=== PATIENT | female | born 1990 | race Caucasian/White ===

== ENCOUNTER 2016-10-24 17:40 | Observation (INO) | payer BC, OTHER ==
[~2016-10-24] VITALS: Ht 154.9 cm; Wt 59.4 kg
[2016-10-24] MEDS ORDERED: PREVTAB2 PO (17:53)
[2016-10-24 18:23] LABS: BASO % 0.2 % (0.0-1.0); EOS % 0.1 % (0.0-3.0); LARGE UNSTAINED CELL # 0.1 K/mm3 (0.0-0.4); LARGE UNSTAINED CELL % 0.6 % (0.0-4.0); LYMPH # 1.5 K/mm3 (1.5-6.5); LYMPH % 13.9 % (24.0-44.0); MEAN CORPUSCULAR HEMOGLOBIN 28.2 pg (27.0-33.0); MEAN CORPUSCULAR HGB CONC 34.4 g/dl (32.0-36.5); MEAN CORPUSCULAR VOLUME 81.8 fl (80.0-96.0); MONO # 0.4 K/mm3 (0.0-0.8); MONO % 3.7 % (0.0-5.0); NEUTROPHILS # 8.3 K/mm3 (1.8-7.7); NEUTROPHILS % 81.6 % (36.0-66.0); PLATELET COUNT, AUTOMATED 206 k/mm3 (150-450); RED CELL DISTRIBUTION WIDTH 12.7 % (11.5-14.5); WHITE BLOOD COUNT 10.2 K/mm3 (4.0-10.0)
[2016-10-24 18:43] LABS: CONTROL LINE HCG INT CTR LINE PRESENT
[2016-10-24 18:54] LABS: ANION GAP 10 MEQ/L (8-16); BLOOD UREA NITROGEN 13 MG/DL (7-18); CALCIUM LEVEL 9.2 MG/DL (8.5-10.1); CARBON DIOXIDE LEVEL 24 MEQ/L (21-32); CHLORIDE LEVEL 106 MEQ/L (98-107); CREATININE FOR GFR 0.78 MG/DL (0.55-1.02); FREE T4 1.21 NG/DL (0.76-1.46); GLOMERULAR FILTRATION RATE > 60.0 (>60); GLUCOSE, FASTING 124 MG/DL (70-105); MAGNESIUM LEVEL 2.1 MG/DL (1.8-2.4); PHOSPHORUS LEVEL 1.8 MG/DL (2.5-4.9); POTASSIUM SERUM 3.7 MEQ/L (3.5-5.1); SODIUM LEVEL 140 MEQ/L (136-145)
[2016-10-24] MEDS ORDERED: ISOVUE-370 76% 100ML VIAL (Q9967) As Ordered ONE (19:12)
[2016-10-24 19:34] LABS: METHADONE URINE NEGATIVE (NEGATIVE)
--- NOTE | 2016-10-24 19:51 | REP ---
Clinical: Acute chest pain . Technique: Axial contrast enhanced images from the thoracic inlet to the upper abdomen using 100 ml Isovue 370 intravenous contrast material with multiplanar re-formations. Findings: Satisfactory enhancement of the pulmonary vasculature is achieved and no filling defects are identified to suggest pulmonary embolus. Further evaluation of the mediastinum demonstrates normal thoracic aorta, heart and pericardium. The bilateral lung camara are well aerated and clear without consolidation, pleural effusion or pneumothorax. Tracheobronchial tree is patent. No nodule or mass lesion is identified. No adenopathy noted. Surrounding musculoskeletal structures intact Impression: No evidence for pulmonary embolus. No acute mediastinal or pleural parenchymal process. Signed by Randolph Holden MD 10/24/2016 07:43 P
[2016-10-24] MEDS ORDERED: BISACODYL 5 MG TAB PO PRN (20:00)
[2016-10-24] MEDS ORDERED: ONDANSETRON 4MG/2ML VIAL (J2405) IV PRN (20:00)
[2016-10-24] MEDS ORDERED: NEUTRA-PHOS 1.25 GM PACKET PO ONE (20:00)
[2016-10-24] MEDS ORDERED: FERR325T PO (20:08)
[2016-10-24] MEDS ORDERED: VITA-121 PO (20:08)
[2016-10-24] MEDS ORDERED: NS 1,000 ML IV ONE (21:00)
[2016-10-24] MEDS ORDERED: K-PHOS NEUTRAL 250MG TABLET (SOD.PHOSPHATE/POT.PHOSPHATE) PO SCH (21:00)
[2016-10-24] MEDS ORDERED: HEPARIN SOD (PORCINE) 5000 UNITS/ML VIAL SC SCH (22:00)
--- NOTE | 2016-10-24 22:53 | HPE ---
DATE OF ADMISSION: 10/24/2016 PRIMARY CARE PHYSICIAN: Dr. Laurence Jenkins INPATIENT HOSPITALIST ATTENDING: Patient will be assigned to Dr. Stepan Page at 7:00 a.m. on 10/25/2016. CHIEF COMPLAINT: Palpitations, lightheadedness, dizziness. HISTORY OF THE PRESENT ILLNESS: This is a 26-year-old female with a history of vitamin D deficiency, iron deficiency anemia, presents to the emergency room with a 1-2 month history of on and off palpitations noted when she took some cold medications for respiratory symptoms, had a reaction and complained of palpitations. At that time, she had seen her primary care physician who had recommended no caffeinated beverages and to avoid chocolate and caffeine. In general, the patient has been having on and off dizziness and lightheadedness even with rest. Complained of occasional chest pressure, notes sometimes some shortness of breath when this occurs. She otherwise denies any fevers or chills. Has occasional headaches and blurred vision, which is 2-3 per week that she has had for several years. No chills, no cough. No abdominal pain. She has occasional abdominal cramping, especially today when she started her period. Otherwise denies dysuria, urgency, frequency, bright red blood per rectum, melena or black , tarry stools. Prior to 2 months ago, she has had no prior episodes of palpitations, lightheadedness or dizziness. She has had unintentional weight loss of about 13 pounds since this started with decreased appetite, more markedly with decrease in appetite in the past 2 weeks. She usually weighs 143 pounds, currently 130 pounds when assessed in the emergency room today. TSH level was within normal limits. She saw Dr. Laurence Jenkins today, prompted her to come to the emergency room (ER) due to persistent complaints and palpitations and dizziness. No syncopal episodes. She was found to have sinus tachycardia, ventricular rate of 115 with junctional rhythm noted on persistent telemetry. CT chest was negative for pulmonary embolism; otherwise unremarkable with no acute mediastinal or pleural parenchymal process. Hospitalist service was called for admission for observation for palpitations and dizziness, junctional rhythm. PAST MEDICAL HISTORY: Vitamin D deficiency. Iron deficiency anemia. PAST SURGICAL HISTORY: Appendectomy at the age of 8 or 9. HOME MEDICATIONS: - Previfem 0.25-35 mg-mcg one tablet daily - vitamin D3 one tablet daily - ferrous sulfate one tablet daily ALLERGIES: LATEX causing hives. SOCIAL HISTORY: Single, currently not working and not a student. No alcohol or cigarette use. FAMILY HISTORY: Mother and father alive and well. No medical problems. Mother is age 47, father age 50. Maternal great-aunt had heart problems. REVIEW OF SYSTEMS: 12-point system negative aside from positive findings on history of the present illness. PHYSICAL EXAMINATION: Vital Signs: Temperature 99.1, pulse 116, sinus tachycardia, respiratory rate 20 , blood pressure 132/99, pulse oximetry 97% on room air. General: Awake, alert, oriented times three, no respiratory distress or cyanosis. No use of respiratory accessory muscles. No icterus or jaundice. Pupils are equally round and reactive to light and accommodation. Extraocular muscles are intact. Normocephalic, atraumatic. Moist mucous membranes. Tongue is midline. No cervical lymphadenopathy, thyromegaly or pharyngeal erythema. Lungs are clear to auscultation. No wheezing, rales, or rhonchi. Air entry is equal bilaterally. Heart: S1, S2, sinus tachycardia. No murmurs, rubs or gallops. Abdomen is soft, nontender, nondistended. Positive bowel sounds. Extremities: No cyanosis, clubbing or pitting edema. Neurologically, she is awake, alert, oriented times three. Motor function is 5/5 times four extremities. No sensory disturbance. Cranial nerves II-XII are intact. LABORATORY DATA: White count 10.2, hemoglobin 14.7, hematocrit 42.6, platelet count 206, 81% neutrophils. Sodium 140, potassium 3.7, chloride 106, bicarbonate 24, BUN 13, creatinine 0.78, glucose of 124, calcium 9.2, phosphorus 1.8, magnesium 2.1, total CK 43, MB fraction 1, troponin less than 0.02, TSH 1.05, free T4 1.21, HCG qualitative negative. Urine toxicology screen is negative. Urinalysis: 1+ protein, 2+ ketones, 3+ blood. Negative nitrite, bilirubin, negative leukocyte esterase, 7 WBCs, too numerous to count RBCs, 1+ bacteria. Urine culture is pending. IMAGING STUDIES: CT chest: No pulmonary embolism. No acute mediastinal or pleural parenchymal process. ASSESSMENT AND PLAN: A 26-year-old female with a history of vitamin D deficiency and iron deficiency anemia, on chronic supplementation and oral contraceptive pill, was in her usual state of health until 1-2 months ago when she developed palpitations, lightheadedness and dizziness after taking zumm-esp-degcnhr cold medications for upper respiratory symptoms. Since then, the patient has been having on and off palpitations, lightheadedness and dizziness, despite having discontinued all caffeinated beverages, including chocolate and coffee with persistent symptoms. The patient was noted to have sinus tachycardia and junctional rhythm on telemetry. CT chest was negative for pulmonary embolism. She is admitted for observation under hospitalist service and will be assigned to Dr. Stepan Page, hospitalist attending, at 7:00 a.m. on 10/25/2016 for the following issues: 1. Palpitations with complaints of dizziness. No episodes of syncope. The patient had an abnormal EKG with sinus tachyarrhythmia, episodes of junctional rhythm. Therefore, she will be admitted to telemetry with 24 hours cardiac monitoring. Continue to avoid caffeinated beverages. Thyroid-stimulating hormone (TSH) was normal and ruled out hyperthyroidism. Echocardiogram will be ordered. No murmurs on examination. Repeat 12-lead EKG in the morning, off telemetry for testing. 2. Unintentional weight loss. Patient has had decrease in appetite for the past 2 weeks and has an unintentional weight loss of 13 pounds. TSH is within normal limits. Outpatient followup with her primary care physician for monitoring. 3. Vitamin D deficiency. Continue with vitamin D supplements. Check PTH, calcium and vitamin D levels. 4. Iron deficiency. Currently not anemic. May continue home dose of ferrous sulfate. 5. Low phosphorus. Patient has been given Neutra-Phos. May continue 3-4 times daily and recheck phosphorus level in the morning. 6. Deep vein thrombosis (DVT) prophylaxis with heparin subcutaneously three times a day. 7. Abnormal EKG with junctional rhythm on telemetry. Continue with telemetry monitoring, cardiac monitoring for 24 hours, await 2D echo and repeat 12-lead EKG in the morning. The patient will be assigned to Dr. Stepan Page 10/25/2016 at 7:00 a.m. Copy To: Dr. Laurence VAN
[2016-10-25] VITALS (7 sets, daily range): BP systolic 119–136; BP diastolic 78–86; PULSE 156–205
[2016-10-25 03:41] LABS: IONIZED CALCIUM 4.7 MG/DL (4.5-5.3)
[2016-10-25 03:45] LABS: MEAN CORPUSCULAR HEMOGLOBIN 28.9 pg (27.0-33.0); MEAN CORPUSCULAR HGB CONC 34.2 g/dl (32.0-36.5); MEAN CORPUSCULAR VOLUME 84.4 fl (80.0-96.0); RED CELL DISTRIBUTION WIDTH 12.6 % (11.5-14.5); WHITE BLOOD COUNT 8.6 K/mm3 (4.0-10.0)
[2016-10-25 04:46] LABS: ANION GAP 9 MEQ/L (8-16); BLOOD UREA NITROGEN 13 MG/DL (7-18); CALCIUM LEVEL 8.8 MG/DL (8.5-10.1); CARBON DIOXIDE LEVEL 26 MEQ/L (21-32); CHLORIDE LEVEL 106 MEQ/L (98-107); CREATININE FOR GFR 0.67 MG/DL (0.55-1.02); GLOMERULAR FILTRATION RATE > 60.0 (>60); GLUCOSE, FASTING 92 MG/DL (70-105); MAGNESIUM LEVEL 2.1 MG/DL (1.8-2.4); PHOSPHORUS LEVEL 3.4 MG/DL (2.5-4.9); POTASSIUM SERUM 3.7 MEQ/L (3.5-5.1); SODIUM LEVEL 141 MEQ/L (136-145)
--- NOTE | 2016-10-25 08:14 | ECGEPIP ---
Stationary ECG Study [facility] Test Date: 2016-10-25 Pat Name: HUSSAIN ACOSTA Department: Room: [place] [address] Gender: F Sanitary Plumber: CINDY : 1990 Requested By: YOBANI PIEDRA Order Number: [id number] Reading MD: Radha Harding Measurements Intervals [place] Rate: 75 P: 42 [place]: 134 QRS: 66 QRSD: 85 T: 43 QT: 383 QTc: 429 Interpretive Statements SINUS RHYTHM WITH SINUS ARRHYTHMIA Now WITH SINUS RHYTHM PREVIOUSLY WITH ECTOPIC AATRIAL PROB EARLY REPOLAR CHANGES PERSIST Electronically Signed On 10-25-2016 8:14:05 EDT by Radha Harding
--- NOTE | 2016-10-25 08:16 | ECGEPIP ---
Stationary ECG Study [facility] Test Date: 2016-10-25 Pat Name: HUSSAIN ACOSTA Department: Room: [place] [address] Gender: F Resident Physician: CINDY : 1990 Requested By: YOBANI PIEDRA Order Number: [id number] Reading MD: Radha Harding Measurements Intervals [place] Rate: 78 P: 262 [place]: 123 QRS: 71 QRSD: 84 T: 42 QT: 371 QTc: 424 Interpretive Statements ECTOPIC ATRIAL RHYTHM EARLY REPOLARIZATION ABNORMAL RHYTHM ECG SIMILAR TO 10/24 10/25 EARLIER WITH nsr Electronically Signed On 10-25-2016 8:15:36 EDT by Radha Harding
--- NOTE | 2016-10-25 10:16 | ECGEPIP ---
Stationary ECG Study [facility] Test Date: 2016-10-24 Pat Name: HUSSAIN ACOSTA Department: Room: - Gender: F Guyline Operator: JBladimir : 1990 Requested By: PHIL Hutchinson Order Number: [id number] Reading MD: Leatha Bustos Measurements Intervals [place] Rate: 104 P: 48 [place]: 132 QRS: 68 QRSD: 80 T: 29 QT: 328 QTc: 433 Interpretive Statements SINUS TACHYCARDIA ABNORMAL RHYTHM ECG EARLY REPOLARIZATION INCREASED 10/25/16 3:13 Electronically Signed On 10-25-2016 10:16:17 EDT by Leatha Bustos
--- NOTE | 2016-10-25 11:01 | ECGEPIP ---
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
--- NOTE | 2016-10-25 11:29 | IPN ---
DATE OF EXAM: 10/25/2016 SUBJECTIVE: Today the patient tells me that she is feeling a little bit better, but she still feels some palpitations and lightheadedness, but does note no near significant as it was when she presented to the emergency room. OBJECTIVE: VITAL SIGNS: Temperature 98.7, pulse 88, when I enter the room it does increase to just above 100 which it does calm down and does reduce back down to the 80s, respiratory rate 20, blood pressure 119/79, oxygen saturation 94% on room air. GENERAL: She is a pleasant, young, female laying flat in bed, sleeping peacefully at the other end of the room. She is easily arousable. HEENT: Cranial nerves II-XII grossly intact. She has moist mucous membranes. No elevation of central venous pressure. CARDIOVASCULAR: S1, S2. She is mildly tachycardic on exam without any distant heart sounds appreciated. She appears to be quite regular. RESPIRATORY: Clear. ABDOMEN: Benign. EXTREMITIES: No clubbing, cyanosis or edema. LABORATORY STUDIES: WBC 8.6, hemoglobin 14.1, platelet count 201. Chemistry panel - sodium 141, potassium 3.7, chloride 106, bicarbonate 26, BUN 13, creatinine 0.3. Two sets of cardiac enzymes are negative. Phosphorus level was initially low at 1.8 yesterday evening, a recheck this morning was in the normal range at 3.4. TSH was within normal limits. HCG test is negative. A urine toxicology is negative. UA is positive for RBCs, but the patient has had her period yesterday. A Lyme screening is pending. A urine culture is pending. Patient did have a CT angiography of her chest which revealed no evidence of pulmonary embolism (PE) or acute mediastinal or pleuroparenchymal process. ASSESSMENT AND PLAN: This is a 26-year-old female presenting with palpitations and lightheadedness. PROBLEMS: 1. Palpitations and lightheadedness. No syncopal episodes. There was concern for a junctional rhythm on her presenting EKG, however, she appears to be in sinus tach. The patient reportedly had the symptoms after taking some njis-iir-jbglgqq cough medicine with multiple ingredients in it, she does not recall what it was. The patient has had episodes in the past, but not as persistent for the last several weeks as it has been now and given her age and the abnormalities on her EKG I placed a consult with Dr. Hanks who has told me he will see the patient today to evaluate for any further chest and an echocardiogram has been ordered. 2. Unintentional weight loss. Patient does not appear to be malnourished on exam. She has moist mucous membranes without any significant lab abnormalities. She is tolerating a diet here quite well. She has recently been ill and taking xteq-aig-azcxxvv cold medicine and recent illness may be a contributing factor to recent weight loss which she does appear to be recovering. TSH is within normal limits. Followup with her primary care provider. 3. Vitamin D deficiency. Continue with supplementation. PTH and vitamin D levels have been checked. 4. Iron deficiency anemia. She is not currently anemic. She will continue on her home dose of ferrous sulfate. 5. Low phosphorus. She did not resolve with repletion. We will not add any further repletion. 6. Deep venous thrombosis (DVT) prophylaxis. The patient is on heparin. DISPOSITION: The patient is awaiting an echocardiogram, consultation from Dr. Hanks. Symptoms may be related to anxiety. We will continue to monitor this patient closely.
[2016-10-25] MEDS: ACETAMINOPHEN TAB 650MG DOSE (2X325MG) PO PRN (17:09)
[2016-10-25] MEDS: MECLIZINE 25 MG TABLET PO SCH (21:15)
[2016-10-26] VITALS: BP 130/70
[2016-10-26 04:00] VITALS: BP 126/79
[2016-10-26 04:55] LABS: MEAN CORPUSCULAR HEMOGLOBIN 28.5 pg (27.0-33.0); MEAN CORPUSCULAR HGB CONC 34.8 g/dl (32.0-36.5); MEAN CORPUSCULAR VOLUME 82.1 fl (80.0-96.0); RED CELL DISTRIBUTION WIDTH 12.7 % (11.5-14.5); WHITE BLOOD COUNT 7.3 K/mm3 (4.0-10.0)
[2016-10-26 05:09] LABS: ANION GAP 7 MEQ/L (8-16); BLOOD UREA NITROGEN 9 MG/DL (7-18); CALCIUM LEVEL 8.8 MG/DL (8.5-10.1); CARBON DIOXIDE LEVEL 28 MEQ/L (21-32); CHLORIDE LEVEL 106 MEQ/L (98-107); CREATININE FOR GFR 0.66 MG/DL (0.55-1.02); GLOMERULAR FILTRATION RATE > 60.0 (>60); GLUCOSE, FASTING 89 MG/DL (70-105); POTASSIUM SERUM 3.5 MEQ/L (3.5-5.1); SODIUM LEVEL 141 MEQ/L (136-145)
[2016-10-26 06:55] LABS: PHOSPHORUS LEVEL 3.4 MG/DL (2.5-4.9)
[2016-10-26 08:00] VITALS: BP 117/79
--- NOTE | 2016-10-26 08:05 | ECGEPIP ---
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
[2016-10-26] MEDS: MECLIZINE 25 MG TABLET PO SCH ×2 (09:21→20:42)
[2016-10-26 12:00] VITALS: BP 118/74
--- NOTE | 2016-10-26 12:32 | IPN ---
DATE: 10/26/2016 SUBJECTIVE: The patient tells me that she is not feeling as lightheaded or having shortness of breath. However, she does feel uncomfortable at times when she gets up and walks. She denies any lightheadedness or dizziness at the present time. No fevers, chills. SUBJECTIVE: Vital signs: Temperature 97.3, pulse 78, respiratory rate 16, blood pressure 117/79, oxygen saturation 93% on room air. General: She is a young female lying flat in bed. She does not appear to be in any acute distress. Sleeping peacefully when I entered the room. HEENT: Cranial nerves II through XII are grossly intact. She has moist mucous membranes. No elevation of CVP. Cardiovascular exam: S1, S2. Regular. She is not tachycardic. Respiratory: Exam is clear. Abdomen: Benign. Extremities: No clubbing, cyanosis or edema. LABORATORY STUDIES: WBC 7.3, hemoglobin 13.1, platelet count 180. Chemistry panel: Sodium 141, potassium 3.5, chloride 106, bicarbonate 28, BUN 9, creatinine 0.6. She has a TSH within normal limits. Toxicology is negative. Urine culture is negative. No other imaging. ASSESSMENT AND PLAN: This is a 26-year-old female with palpitations and lightheadedness. PROBLEMS: 1. Palpitations and lightheadedness. No syncopal episodes. The patient does appear to have junctional rhythm on her EKGs. Dr. Hanks has been consulted. I am awaiting his recommendations. We ordered an echocardiogram which has been completed. We are awaiting the report. There does not appear to be a clear etiology for her symptoms at this time. She has been avoiding caffeine counting chocolate. Dr. Hanks's help is greatly appreciated. 2. Vitamin D deficiency. Patient on supplementation. 3. Iron deficiency anemia. She is not currently anemic. She is on her home dose of ferrous sulfate. 4. Low phosphorus at the time of admission. It did resolve with easy repletion. 5. Deep venous thrombosis (DVT) prophylaxis. Patient on heparin. DISPOSITION: Continue to follow this patient closely. [facility]
[2016-10-26 16:00] VITALS: BP 111/80
[2016-10-26 20:00] VITALS: BP 121/83
[2016-10-27] VITALS: BP 132/89
[2016-10-27 00:06] LABS: Lyme Disease IgG/IgM Antibodie <0.91 ISR (0.00-0.90); Lyme Disease IgM Ab Quantitati <0.80 index (0.00-0.79)
[2016-10-27 04:00] VITALS: BP 133/73
[2016-10-27 05:24] LABS: MEAN CORPUSCULAR HEMOGLOBIN 28.1 pg (27.0-33.0); MEAN CORPUSCULAR HGB CONC 33.4 g/dl (32.0-36.5); MEAN CORPUSCULAR VOLUME 84.1 fl (80.0-96.0); RED CELL DISTRIBUTION WIDTH 12.6 % (11.5-14.5)
[2016-10-27 05:43] LABS: ANION GAP 8 MEQ/L (8-16); BLOOD UREA NITROGEN 10 MG/DL (7-18); CALCIUM LEVEL 8.1 MG/DL (8.5-10.1); CARBON DIOXIDE LEVEL 26 MEQ/L (21-32); CHLORIDE LEVEL 106 MEQ/L (98-107); CREATININE FOR GFR 0.64 MG/DL (0.55-1.02); GLOMERULAR FILTRATION RATE > 60.0 (>60); GLUCOSE, FASTING 96 MG/DL (70-105); MAGNESIUM LEVEL 1.9 MG/DL (1.8-2.4); PHOSPHORUS LEVEL 3.4 MG/DL (2.5-4.9); POTASSIUM SERUM 3.4 MEQ/L (3.5-5.1); SODIUM LEVEL 140 MEQ/L (136-145)
[2016-10-27 08:00] VITALS: BP 127/76
[2016-10-27] MEDS: ACETAMINOPHEN TAB 650MG DOSE (2X325MG) PO PRN (08:01)
[2016-10-27] MEDS: MECLIZINE 25 MG TABLET PO SCH (08:02)
--- NOTE | 2016-10-27 20:18 | ECHO ---
DATE OF PROCEDURE: 10/25/2016 REFERRING PROVIDER: Dr. Stepan Page PATIENT LOCATION: Room 3201 REASON FOR ECHOCARDIOGRAM: Abnormal EKG. 2D MEASUREMENTS: IVS: 0.89 cm LVPW: 0.85 cm LV: 4.0 cm LA: 2.7 cm Aorta: 2.7 cm IVC: 1.72 cm DOPPLER MEASUREMENTS: Peak velocity across the LVOT: 0.77 m/s Mitral E: 0.54 Mitral A: 0.43 with a ratio of 1.3 2D COMMENTS: 1. Normal left ventricular size, wall thickness and normal global left ventricular systolic evidence of defect on Doppler. 2. No pericardial effusion seen. 3. Normal aortic root. 4. The aortic valve, mitral valve, the tricuspid valve appear to be normal. The pulmonic valve and proximal pulmonary artery branches were not visualized. 5. The inferior vena cava was normal in size. Central venous pressure is most likely normal. DOPPLER: No significant valvular abnormalities detected. Assessment of the left ventricular diastolic function appear to be normal. IMPRESSION: 1. Normal global left ventricular systolic and diastolic function. 2. No significant valvular abnormalities. 3. 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
--- NOTE | 2016-10-28 21:19 | DSES ---
DATE OF ADMISSION: 10/24/2016 DATE OF DISCHARGE: 10/27/2016 DISCHARGE DIAGNOSIS: Tachycardia. SECONDARY DIAGNOSES: 1. Dizziness, lightheadedness. 2. Palpitations. 3. Vitamin D deficiency. 4. Iron deficiency. 5. Hypophosphatemia. HOSPITAL COURSE: The patient is a 26-year-old female who reportedly had taken some cough medicine with multiple ingredients in it that she cannot recall, and then following this, she has had persistent episodes of palpitations and lightheadedness without any syncopal episodes. During the episodes, she finds her heart rate is elevated. She finds that anytime she does any activity such as getting a walk to the bathroom, she finds her heart rate to be quite elevated. She was admitted to the telemetry floor. Electrocardiograms (EKGs) were concerning for junctional rhythm although there is no documentation in the chart as of yet. She did have an echocardiogram and was seen by Dr. Hanks of cardiology on multiple occasions. She did have a fairly thorough workup with negative cardiac enzymes. CT angiogram did not reveal any pulmonary embolism (PE). At times while resting in the hospital, her heart rate was in the 60s and 70s. However, when a doctor would enter the room, her heart rate was noticed to jump to greater than 100. There is a concern that her tachycardia may be related in some way to anxiety as no abnormalities were able to be found. Her toxicology screen was negative. She is not using caffeine or tobacco products. Her lab screen was negative. During her stay, the patient was on her menstrual cycle. SUBJECTIVE: Today, the patient reports that she feels well. She does not have any lightheadedness at present. OBJECTIVE: VITAL SIGNS: Temperature is 97.4, pulse 94, respiratory rate 20, blood pressure 127/76, oxygen saturation 98% on room air. GENERAL: She is a young female lying flat in bed. She has a mildly flat affect. She does not appear to be in any acute distress whatsoever. HEENT: Cranial nerves II through XII are grossly intact. She has moist mucous membranes. No elevation of central venous pressure (CVP). CARDIOVASCULAR: S1, S2. Regular rate and rhythm at this time. She is not tachycardic on my exam. RESPIRATORY: Clear. ABDOMEN: Benign. EXTREMITIES: No clubbing, cyanosis or edema. LABORATORY DATA: WBC 7.0, hemoglobin 12.9, platelet count 196. Chemistry panel: Sodium 140, potassium 3.4, chloride 106, bicarbonate 26, BUN 10, creatinine 0.6, phosphorus level 3.4, magnesium 1.9. TSH within normal limits, and hCG was negative. UA revealed blood but the patient was on her menstrual cycle. Urine toxicology was negative. Lyme screen was negative. IMAGING: The patient had CT angiogram that did not reveal any PE. ASSESSMENT AND PLAN: This is a 26-year-old female with palpitations, lightheadedness. 1. Palpitations, lightheadedness. No episodes of syncope. The patient appears to have some concerning junctional rhythm on her EKG. Dr. Hanks has been consulted and has seen the patient on multiple occasions. I have spoken with him personally. He has assured me that there are no abnormalities on her echocardiogram, and there is nothing to be done in terms of medication or treatment at this time, and that he will follow her on the outpatient setting. I do have concern that her symptoms may be related to anxiety, and she will followup with Dr. Hanks and her primary care provider. 2. Vitamin D deficiency. She is on supplementation. 3. Iron-deficiency anemia. She is not anemic. She is continued on her home ferrous sulfate. 4. Low phosphate. At the time of admission, she did receive one dose of repletion. This resolved. 5. Deep venous thrombosis (DVT) prophylaxis. She was on heparin while in hospital. DISPOSITION: The patient is at her functional baseline. She is being discharged home to the care of her father. She is to followup with her primary care provider (PCP) in seven days. Followup with Dr. Hanks within two weeks. Activity is as tolerated. Diet is regular. She is to return to the ER if her symptoms worsen. DISCHARGE MEDICATIONS: - vitamin D3 daily - ferrous sulfate daily - Previfem 0.2/35 one tablet daily Greater than 30 minutes spent organizing this discharge.
== END 2016-10-27 10:08 | disposition home or self-care (01) ==
LOC: M ED 18:23 → M ED INP 19:55 → M ICU 23:21
PROVIDERS: ADMIT General Practice; ATTEND Internal Medicine
DX: R00.0 Tachycardia, unspecified (principal); R42 Dizziness and giddiness; R00.2 Palpitations; E55.9 Vitamin D deficiency, unspecified; D50.9 Iron deficiency anemia, unspecified; E83.39 Other disorders of phosphorus metabolism; Z91.040 Latex allergy status
CPT/HCPCS: 36415; 71275; 80048; 80306; 81001; 82306; 82330; 82550; 82553; 83735; 83970; 84100; 84439; 84443; 84703; 85025; 85027; 86617; 87086; 93005; 93041; 94760; 96374; 99285; J2405; Q9967

== ENCOUNTER → 2016-10-24 | Outpatient (CLI) | payer BC, OTHER ==
[~2016-10-24] MED LIST: FERR325T PO; PREVTAB2 PO; VITA-121 PO
--- NOTE | 2016-10-24 16:35 | REP ---
Chest x-ray: Two views. History: Cardiac history. . Comparison study: January 27, 2014 . Findings: The lungs are well inflated and free of infiltrate. The pleural angles are sharp. The heart size is normal. Pulmonary vasculature is not increased. No significant bony abnormality is seen. Impression: Negative chest x-ray. Signed by Bennie Padgett MD 10/24/2016 04:26 P
[2016-10-24 16:40] LABS: MEAN CORPUSCULAR HEMOGLOBIN 28.2 pg (27.0-33.0); MEAN CORPUSCULAR HGB CONC 34.2 g/dl (32.0-36.5); MEAN CORPUSCULAR VOLUME 82.6 fl (80.0-96.0); RED CELL DISTRIBUTION WIDTH 12.8 % (11.5-14.5); WHITE BLOOD COUNT 9.1 K/mm3 (4.0-10.0)
[2016-10-24 17:02] LABS: ALBUMIN 4.1 GM/DL (3.2-5.2); ALBUMIN/GLOBULIN RATIO 1.14 (1.00-1.93); ALKALINE PHOSPHATASE 66 U/L (45-117); ALT/SGPT 33 U/L (12-78); ANION GAP 11 MEQ/L (8-16); AST/SGOT 12 U/L (15-37); BILIRUBIN,TOTAL 0.4 MG/DL (0.2-1.0); BLOOD UREA NITROGEN 13 MG/DL (7-18); CALCIUM LEVEL 9.3 MG/DL (8.5-10.1); CARBON DIOXIDE LEVEL 23 MEQ/L (21-32); CHLORIDE LEVEL 106 MEQ/L (98-107); CHOLESTEROL LEVEL 189 MG/DL (<200); CREATININE FOR GFR 0.79 MG/DL (0.55-1.02); GLOMERULAR FILTRATION RATE > 60.0 (>60); GLUCOSE, FASTING 127 MG/DL (70-105); PERCENT SATURATION 15.7 % (13.2-37.4); POTASSIUM SERUM 3.6 MEQ/L (3.5-5.1); SODIUM LEVEL 140 MEQ/L (136-145); TOTAL IRON BINDING CAPACITY 464 UG/DL (250-450); TOTAL PROTEIN 7.7 GM/DL (6.4-8.2); TRIGLYCERIDES LEVEL 122 MG/DL (<150)
--- NOTE | 2016-10-25 06:17 | ECGEPIP ---
Stationary ECG Study [facility] Test Date: 2016-10-24 Pat Name: HUSSAIN ACOSTA Department: Room: - Gender: F Public Speaking Teacher: JAYASHREE : 1990 Requested By: Jen Dang Order Number: [id number] Reading MD: Radha Harding Measurements Intervals [place] Rate: 98 P: 263 [place]: 118 QRS: 66 QRSD: 85 T: 26 QT: 333 QTc: 426 Interpretive Statements ECTOPIC ATRIAL RHYTHM ABNORMAL RHYTHM ECG NO PRIOR Electronically Signed On 10-25-2016 6:17:00 EDT by Radha Harding
== END ==
LOC: M LAB 15:57
PROVIDERS: ATTEND Family Medicine
DX: Z13.6 Encounter for screening for cardiovascular disorders (principal)

== ENCOUNTER → 2017-09-28 | Outpatient (CLI) | payer BC, OTHER ==
[2017-09-28 14:52] LABS: COMPLEMENT C3 122 MG/DL (90-180); COMPLEMENT C4 28.2 MG/DL (10-40); IMMUNOGLOBULIN G 818 MG/DL (681-1648); IMMUNOGLOBULIN M 100 MG/DL (40-230)
== END ==
LOC: M LAB 13:05
DX: J30.1 Allergic rhinitis due to pollen (principal); J30.81 Allergic rhinitis due to animal (cat) (dog) hair and dander; J30.89 Other allergic rhinitis; R05 Cough; H10.45 Other chronic allergic conjunctivitis
CPT/HCPCS: 82785

== ENCOUNTER → 2017-10-19 | Outpatient (REF) | payer OTHER | LOC: M SFHCWAGY 15:48 | DX: N98.8 Other complications associated with artificial fertilization (principal) ==

== ENCOUNTER → 2018-02-23 | Outpatient (CLI) | payer BC, OTHER ==
[2018-02-23 15:19] LABS: HEMATOCRIT 40.4 % (36.0-47.0); HEMOGLOBIN 13.5 g/dl (12.0-15.5); MEAN CORPUSCULAR HEMOGLOBIN 26.9 pg (27.0-33.0); MEAN CORPUSCULAR HGB CONC 33.4 g/dl (32.0-36.5); MEAN CORPUSCULAR VOLUME 80.5 fl (80.0-96.0); PLATELET COUNT, AUTOMATED 191 10^3/uL (150-450); RED BLOOD COUNT 5.02 10^6/uL (4.00-5.40); RED CELL DISTRIBUTION WIDTH 12.7 % (11.5-14.5); WHITE BLOOD COUNT 9.7 10^3/uL (4.0-10.0)
[2018-02-23 15:37] LABS: ESTIMATED AVERAGE GLUCOSE 100 MG/DL (60-110); HEMOGLOBIN A1c 5.1 %
[2018-02-23 15:55] LABS: ALBUMIN 4.1 GM/DL (3.2-5.2); ALBUMIN/GLOBULIN RATIO 1.14 (1.00-1.93); ALKALINE PHOSPHATASE 63 U/L (45-117); ALT/SGPT 21 U/L (12-78); ANION GAP 8 MEQ/L (8-16); AST/SGOT 10 U/L (7-37); BILIRUBIN,TOTAL 0.3 MG/DL (0.2-1.0); BLOOD UREA NITROGEN 10 MG/DL (7-18); CALCIUM LEVEL 9.2 MG/DL (8.5-10.1); CARBON DIOXIDE LEVEL 27 MEQ/L (21-32); CHLORIDE LEVEL 105 MEQ/L (98-107); CHOLESTEROL LEVEL 154 MG/DL (<200); CHOLESTEROL RISK RATIO 1.901 (<5); CREATININE FOR GFR 0.65 MG/DL (0.55-1.30); GLOMERULAR FILTRATION RATE > 60.0 (>60); GLUCOSE, FASTING 81 MG/DL (70-100); HDL CHOLESTEROL 81 MG/DL (>40); IRON (FE) 90 UG/DL (50-170); LDL CHOLESTEROL 57 MG/DL (<100); NON-HDL-C 73 MG/DL; POTASSIUM SERUM 4.2 MEQ/L (3.5-5.1); SODIUM LEVEL 140 MEQ/L (136-145); TOTAL IRON BINDING CAPACITY 428 UG/DL (250-450); TOTAL PROTEIN 7.7 GM/DL (6.4-8.2); TRIGLYCERIDES LEVEL 82 MG/DL (<150)
== END ==
LOC: M LAB 14:26
DX: E07.9 Disorder of thyroid, unspecified (principal); D64.9 Anemia, unspecified; R53.83 Other fatigue
CPT/HCPCS: 83550

== ENCOUNTER 2018-11-10 11:45 | Emergency (ER) | payer BC, OTHER, SELFPAY ==
[~2018-11-10] VITALS: Ht 154.9 cm; Wt 63.6 kg
[~2018-11-10 11:45] MED LIST changes: +FERR1TAB8 PO; -FERR325T PO
[2018-11-10] MEDS ORDERED: VITA500045 (11:51)
[2018-11-10 12:14] LABS: BASO % 0.4 % (0.0-1.0); EOS % 0.4 % (0.0-3.0); HEMATOCRIT 37.6 % (36.0-47.0); LYMPH # 1.9 10^3/uL (1.5-6.5); LYMPH % 20.2 % (24.0-44.0); MEAN CORPUSCULAR HEMOGLOBIN 27.8 pg (27.0-33.0); MEAN CORPUSCULAR HGB CONC 34.6 g/dl (32.0-36.5); MEAN CORPUSCULAR VOLUME 80.5 fl (80.0-96.0); MONO # 0.4 10^3/uL (0.0-0.8); MONO % 4.4 % (0.0-5.0); NEUTROPHILS % 74.2 % (36.0-66.0); PLATELET COUNT, AUTOMATED 235 10^3/uL (150-450); RED BLOOD COUNT 4.67 10^6/uL (4.00-5.40); WHITE BLOOD COUNT 9.4 10^3/uL (4.0-10.0)
[2018-11-10 12:52] LABS: BLOOD UREA NITROGEN 9 MG/DL (7-18); CALCIUM LEVEL 8.8 MG/DL (8.5-10.1); CARBON DIOXIDE LEVEL 23 MEQ/L (21-32); CHLORIDE LEVEL 108 MEQ/L (98-107); CK-MB VALUE MASS < 1.0 NG/ML (<3.6); CPK CREATINE PHOSPHOKINASE 47 U/L (26-192); CREATININE FOR GFR 0.63 MG/DL (0.55-1.30); GLOMERULAR FILTRATION RATE > 60.0 (>60); GLUCOSE, FASTING 127 MG/DL (70-100); MB/CK RELATIVE INDEX 2.13 (< OR =4); POTASSIUM SERUM 3.6 MEQ/L (3.5-5.1); SODIUM LEVEL 141 MEQ/L (136-145); TROPONIN I < 0.02 NG/ML (< 0.10)
[2018-11-10 12:54] LABS: HCG, SERUM QUALITATIVE NEGATIVE (NEGATIVE)
[2018-11-10] MEDS ORDERED: ISOVUE-370 76% 100ML VIAL (Q9967) As Ordered ONE (13:13)
--- NOTE | 2018-11-10 13:23 | REP ---
Clinical: Acute chest pain . Comparison: 10/24/2016 . Findings: The mediastinum and cardiac silhouette are stable and within normal limits for portable technique. The lung camara are clear without acute consolidation, effusion, or pneumothorax. Skeletal structures are intact. Impression: No acute cardiopulmonary process appreciated. Electronically Signed by Randolph Holden MD 11/10/2018 01:14 P
--- NOTE | 2018-11-10 14:19 | REP ---
Clinical: Acute chest pain and shortness of breath . Technique: Axial contrast enhanced images from the thoracic inlet to the upper abdomen using 100 ml Isovue 370 intravenous contrast material with coronal and sagittal re-formations. Findings: Satisfactory enhancement of the pulmonary vasculature is achieved and no filling defects are identified to suggest pulmonary embolus. Thoracic aorta is normal caliber without aneurysm or dissection. Heart and pericardium are normal. Bilateral lung camara are well aerated and clear without acute pulmonary parenchymal consolidation or atelectasis. No nodule or mass lesion. No pleural effusion/reaction. No pneumothorax. No adenopathy. Impression: No evidence for pulmonary embolus. No acute pleuroparenchymal or mediastinal process. Electronically Signed by Randolph Holden MD 11/10/2018 02:10 P
[2018-11-10 14:30] VITALS: BP 125/78
--- NOTE | 2018-11-10 19:37 | ECGEPIP ---
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
== END 2018-11-10 14:51 | disposition home or self-care (01) ==
LOC: M ED 11:45
DX: R00.2 Palpitations (principal); R07.89 Other chest pain; J30.89 Other allergic rhinitis; Z82.49 Family history of ischemic heart disease and other diseases of the circulatory system; Z79.3 Long term (current) use of hormonal contraceptives; Z88.8 Allergy status to other drugs, medicaments and biological substances; Z91.040 Latex allergy status
CPT/HCPCS: 36415; 71045; 71275; 80048; 82550; 82553; 84484; 84703; 85025; 93005; 93041; 94760; 99285; Q9967

== ENCOUNTER → 2019-02-19 | Outpatient (CLI) | payer OTHER ==
[~2019-02-19] MED LIST changes: +VITA500045
[2019-02-19 15:30] LABS: HEMATOCRIT 38.2 % (36.0-47.0); HEMOGLOBIN 12.6 g/dl (12.0-15.5); MEAN CORPUSCULAR HEMOGLOBIN 26.9 pg (27.0-33.0); MEAN CORPUSCULAR VOLUME 81.4 fl (80.0-96.0); PLATELET COUNT, AUTOMATED 198 10^3/uL (150-450); RED BLOOD COUNT 4.69 10^6/uL (4.00-5.40); WHITE BLOOD COUNT 6.9 10^3/uL (4.0-10.0)
[2019-02-19 15:55] LABS: HEMOGLOBIN A1c 5.3 %
[2019-02-19 16:05] LABS: ALBUMIN 4.3 GM/DL (3.2-5.2); ALT/SGPT 27 U/L (12-78); BILIRUBIN,TOTAL 0.4 MG/DL (0.2-1.0); BLOOD UREA NITROGEN 9 MG/DL (7-18); CALCIUM LEVEL 9.1 MG/DL (8.5-10.1); CARBON DIOXIDE LEVEL 30 MEQ/L (21-32); CHLORIDE LEVEL 105 MEQ/L (98-107); CHOLESTEROL LEVEL 131 MG/DL (<200); CHOLESTEROL RISK RATIO 2.046 (<5); CREATININE FOR GFR 0.62 MG/DL (0.55-1.30); GLOMERULAR FILTRATION RATE > 60.0 (>60); GLUCOSE, FASTING 91 MG/DL (70-100); HDL CHOLESTEROL 64 MG/DL (>40); IRON (FE) 57 UG/DL (50-170); LDL CHOLESTEROL 51 MG/DL (<100); NON-HDL-C 67 MG/DL; PERCENT SATURATION 15.1 % (13.2-45.0); POTASSIUM SERUM 4.1 MEQ/L (3.5-5.1); SODIUM LEVEL 140 MEQ/L (136-145); TOTAL IRON BINDING CAPACITY 378 UG/DL (250-450); TOTAL PROTEIN 7.2 GM/DL (6.4-8.2); TRIGLYCERIDES LEVEL 82 MG/DL (<150)
[2019-02-19 16:07] LABS: TOTAL 25(OH) VITAMIN D 24.2 NG/ML (30.0-100.0)
== END ==
LOC: M LAB 14:18
PROVIDERS: ATTEND Family Medicine
DX: D64.9 Anemia, unspecified (principal); R53.83 Other fatigue

== ENCOUNTER → 2020-08-11 | Outpatient (CLI) | payer OTHER ==
[2020-08-11 10:36] LABS: HEMATOCRIT 38.8 % (36.0-47.0); HEMOGLOBIN 12.7 g/dl (12.0-15.5); MEAN CORPUSCULAR HGB CONC 32.7 g/dl (32.0-36.5); MEAN CORPUSCULAR VOLUME 82.4 fl (80.0-96.0); PLATELET COUNT, AUTOMATED 153 10^3/uL (150-450); RED BLOOD COUNT 4.71 10^6/uL (4.00-5.40); WHITE BLOOD COUNT 7.4 10^3/uL (4.0-10.0)
[2020-08-11 11:19] LABS: ALBUMIN 4.3 GM/DL (3.2-5.2); ALT/SGPT 21 U/L (12-78); BILIRUBIN,TOTAL 0.2 MG/DL (0.2-1.0); BLOOD UREA NITROGEN 10 MG/DL (7-18); CALCIUM LEVEL 8.7 MG/DL (8.5-10.1); CARBON DIOXIDE LEVEL 28 MEQ/L (21-32); CHLORIDE LEVEL 106 MEQ/L (98-107); CHOLESTEROL LEVEL 153 MG/DL (<200); CHOLESTEROL RISK RATIO 2.125 (<5); CREATININE FOR GFR 0.64 MG/DL (0.55-1.30); GLOMERULAR FILTRATION RATE > 60.0 (>60); GLUCOSE, FASTING 98 MG/DL (70-100); HDL CHOLESTEROL 72 MG/DL (>40); IRON (FE) 63 UG/DL (50-170); LDL CHOLESTEROL 70 MG/DL (<100); NON-HDL-C 81 MG/DL; PERCENT SATURATION 16.8 % (13.2-45.0); SODIUM LEVEL 138 MEQ/L (136-145); TOTAL 25(OH) VITAMIN D 16.6 NG/ML (30.0-100.0); TOTAL IRON BINDING CAPACITY 374 UG/DL (250-450); TOTAL PROTEIN 7.4 GM/DL (6.4-8.2); TRIGLYCERIDES LEVEL 57 MG/DL (<150)
[2020-08-11 12:09] LABS: HEMOGLOBIN A1c 4.9 %
== END ==
LOC: M LAB 09:47
PROVIDERS: ATTEND Family Medicine
DX: D64.9 Anemia, unspecified (principal); R53.83 Other fatigue

== ENCOUNTER → 2020-09-08 | Outpatient (CLI) | payer OTHER ==
[2020-09-08 11:13] LABS: FOLLICLE STIMULATING HORMONE 2.5 mIU/mL; LUTEINIZING HORMONE 1.4 mIU/mL
--- NOTE | 2020-09-09 06:31 | REP ---
INDICATION: OVARIAN CYST COMPARISON: 12/14/2015 TECHNIQUE: Transabdominal pelvic ultrasound with color Doppler evaluation of the ovaries. FINDINGS: Bladder is unremarkable and measures 9.7 x 4.7 x 9.5 cm. Normal anteverted uterus measures 8.7 x 3.8 x 4.9 cm. The endometrial complex measures 18.5 mm thickness. No discrete uterine or endometrial abnormalities are appreciated. Bilateral ovaries are normal in appearance and vascularity without evidence for torsion. Right ovary measures 3.2 x 2.8 x 3.9 cm with 2.1 cm presumed involuting cyst/follicle; R I = 0.65. Left ovary measures 4.0 x 2.3 x 4.1 cm; R I = 0.73. Small amount of free fluid in the pelvis likely physiologic. IMPRESSION: 1. Thickened endometrial complex may be related to menstrual cycle. 2. 2.1 cm presumed involuting physiologic cyst/follicle in the right ovary. 3. Otherwise normal pelvic ultrasound. <Electronically signed by Randolph Holden > 09/09/20 [id number]
== END ==
LOC: M RAD 09:26
PROVIDERS: ATTEND Family Medicine
DX: R93.89 Abnormal findings on diagnostic imaging of other specified body structures (principal); N83.01 Follicular cyst of right ovary

== ENCOUNTER → 2022-07-20 | Outpatient (CLI) | payer OTHER, MEDICARE ==
[2022-07-20 13:59] LABS: HEMATOCRIT 38.6 % (36.0-47.0); HEMOGLOBIN 12.9 g/dl (12.0-15.5); MEAN CORPUSCULAR HGB CONC 33.4 g/dl (32.0-36.5); MEAN CORPUSCULAR VOLUME 80.9 fl (80.0-96.0); PLATELET COUNT, AUTOMATED 186 10^3/uL (150-450); RED BLOOD COUNT 4.77 10^6/uL (4.00-5.40); WHITE BLOOD COUNT 5.9 10^3/uL (4.0-10.0)
[2022-07-20 14:26] LABS: ALBUMIN 4.3 G/DL (3.2-5.2); ALKALINE PHOSPHATASE 68 U/L (46-116); ALT/SGPT 15 U/L (7.0-40); AST/SGOT 13 U/L (<34); BILIRUBIN,TOTAL 0.5 MG/DL (0.3-1.2); BLOOD UREA NITROGEN 14 MG/DL (9-23); CALCIUM LEVEL 9.2 MG/DL (8.5-10.1); CARBON DIOXIDE LEVEL 28 MMOL/L (20-31); CHLORIDE LEVEL 107 MMOL/L (98-107); CREATININE FOR GFR 0.69 MG/DL (0.55-1.30); GLOMERULAR FILTRATION RATE > 60.0 (>60); GLUCOSE, FASTING 90 MG/DL (60-100); IRON (FE) 67 UG/DL (50-170); POTASSIUM SERUM 4.1 MMOL/L (3.5-5.1); SODIUM LEVEL 139 MMOL/L (136-145); THYROID STIMULATING HORMONE 2.239 uIU/ML (0.55-4.78); TOTAL PROTEIN 7.1 G/DL (5.7-8.2)
[2022-07-20 14:27] LABS: TOTAL 25(OH) VITAMIN D 46.7 NG/ML (20.0-100.0)
[2022-07-20 14:28] LABS: VITAMIN B12 LEVEL 495 PG/ML (211-911)
[2022-07-20 16:07] LABS: HEMOGLOBIN A1c 5.4 % (4.0-6.0)
== END ==
LOC: M LAB 13:20
PROVIDERS: ATTEND Family Medicine
DX: D64.9 Anemia, unspecified (principal); R53.83 Other fatigue; E03.9 Hypothyroidism, unspecified

== ENCOUNTER → 2022-08-10 | Outpatient (REF) | payer OTHER | LOC: M SFHCWAGY 15:20 | PROVIDERS: ATTEND Nurse Practitioner Family | DX: Z12.4 Encounter for screening for malignant neoplasm of cervix (principal) ==

== ENCOUNTER → 2022-09-20 | Outpatient (CLI) | payer OTHER | LOC: M WHC 12:28 | PROVIDERS: ATTEND Nurse Practitioner Family | DX: R10.2 Pelvic and perineal pain (principal) ==

== ENCOUNTER → 2023-05-30 | Outpatient (CLI) | payer OTHER ==
[2023-05-30 11:59] LABS: HEMATOCRIT 38.8 % (36.0-47.0); HEMOGLOBIN 12.7 g/dl (12.0-15.5); MEAN CORPUSCULAR HEMOGLOBIN 26.7 pg (27.0-33.0); MEAN CORPUSCULAR HGB CONC 32.7 g/dl (32.0-36.5); MEAN CORPUSCULAR VOLUME 81.5 fl (80.0-96.0); PLATELET COUNT, AUTOMATED 168 10^3/uL (150-450); RED BLOOD COUNT 4.76 10^6/uL (4.00-5.40)
[2023-05-30 12:15] LABS: HEMOGLOBIN A1c 5.2 % (4.0-6.0)
[2023-05-30 12:23] LABS: ALBUMIN 4.2 G/DL (3.2-5.2); ALKALINE PHOSPHATASE 56 U/L (46-116); ALT/SGPT 14 U/L (7.0-40); AST/SGOT < 8 U/L (<34); BILIRUBIN,TOTAL 0.3 MG/DL (0.3-1.2); BLOOD UREA NITROGEN 11 MG/DL (9-23); CALCIUM LEVEL 9.3 MG/DL (8.5-10.1); CARBON DIOXIDE LEVEL 29 MMOL/L (20-31); CHLORIDE LEVEL 106 MMOL/L (98-107); CHOLESTEROL LEVEL 141 MG/DL (<200); CHOLESTEROL RISK RATIO 2.38 (<5); CREATININE FOR GFR 0.57 MG/DL (0.55-1.30); GLOMERULAR FILTRATION RATE > 60.0 (>60); GLUCOSE, FASTING 95 MG/DL (60-100); HDL CHOLESTEROL 59.1 MG/DL (>40); LDL CHOLESTEROL 67.3 MG/DL (<100); NON-HDL-C 81.9 MG/DL; POTASSIUM SERUM 4.1 MMOL/L (3.5-5.1); SODIUM LEVEL 138 MMOL/L (136-145); TOTAL PROTEIN 6.9 G/DL (5.7-8.2); TRIGLYCERIDES LEVEL 73 MG/DL (<150)
[2023-05-30 12:25] LABS: THYROID STIMULATING HORMONE 4.276 uIU/ML (0.55-4.78)
[2023-05-30 12:26] LABS: TOTAL 25(OH) VITAMIN D 48.2 NG/ML (20.0-100.0)
== END ==
LOC: M LAB 10:38
PROVIDERS: ATTEND Family Medicine
DX: D64.9 Anemia, unspecified (principal); R53.83 Other fatigue; E03.9 Hypothyroidism, unspecified

== ENCOUNTER → 2024-04-03 | Outpatient (CLI) | payer OTHER ==
[2024-04-03 13:15] LABS: HEMATOCRIT 37.3 % (36.0-47.0); HEMOGLOBIN 12.5 g/dl (12.0-15.5); MEAN CORPUSCULAR HEMOGLOBIN 26.8 pg (27.0-33.0); MEAN CORPUSCULAR HGB CONC 33.5 g/dl (32.0-36.5); PLATELET COUNT, AUTOMATED 191 10^3/uL (150-450); RED BLOOD COUNT 4.66 10^6/uL (4.00-5.40)
[2024-04-03 13:35] LABS: HEMOGLOBIN A1c 5.1 % (4.0-6.0)
[2024-04-03 13:37] LABS: ALBUMIN 4.1 G/DL (3.2-5.2); ALKALINE PHOSPHATASE 58 U/L (46-116); ALT/SGPT 14 U/L (7.0-40); AST/SGOT < 8 U/L (<34); BILIRUBIN,TOTAL 0.6 MG/DL (0.3-1.2); BLOOD UREA NITROGEN 12 MG/DL (9-23); CALCIUM LEVEL 9.4 MG/DL (8.5-10.1); CARBON DIOXIDE LEVEL 26 MMOL/L (20-31); CHLORIDE LEVEL 108 MMOL/L (98-107); CHOLESTEROL LEVEL 129 MG/DL (<200); CHOLESTEROL RISK RATIO 2.37 (<5); GLOMERULAR FILTRATION RATE > 60.0 (>60); GLUCOSE, FASTING 89 MG/DL (60-100); HDL CHOLESTEROL 54.4 MG/DL (>40); IRON (FE) 69 UG/DL (50-170); LDL CHOLESTEROL 62.8 MG/DL (<100); NON-HDL-C 74.6 MG/DL; PERCENT SATURATION 20.1 % (13.2-45.0); POTASSIUM SERUM 4.1 MMOL/L (3.5-5.1); SODIUM LEVEL 138 MMOL/L (136-145); TOTAL IRON BINDING CAPACITY 344 UG/DL (250-425); TOTAL PROTEIN 6.9 G/DL (5.7-8.2); TRIGLYCERIDES LEVEL 59 MG/DL (<150)
[2024-04-03 13:38] LABS: THYROID STIMULATING HORMONE 1.329 uIU/ML (0.55-4.78); TOTAL 25(OH) VITAMIN D 24.4 NG/ML (20.0-100.0)
== END ==
LOC: M RAD 11:46
PROVIDERS: ATTEND Family Medicine
DX: R53.83 Other fatigue (principal); D64.9 Anemia, unspecified; E03.9 Hypothyroidism, unspecified; M19.90 Unspecified osteoarthritis, unspecified site

== ENCOUNTER → 2024-07-23 | Outpatient (CLI) | payer OTHER ==
[2024-07-23 12:54] LABS: HEMATOCRIT 38.3 % (36.0-47.0); HEMOGLOBIN 12.5 g/dl (12.0-15.5); MEAN CORPUSCULAR HEMOGLOBIN 26.7 pg (27.0-33.0); MEAN CORPUSCULAR HGB CONC 32.6 g/dl (32.0-36.5); MEAN CORPUSCULAR VOLUME 81.7 fl (80.0-96.0); PLATELET COUNT, AUTOMATED 201 10^3/uL (150-450); RED BLOOD COUNT 4.69 10^6/uL (4.00-5.40); WHITE BLOOD COUNT 7.3 10^3/uL (4.0-10.0)
[2024-07-23 13:35] LABS: ALBUMIN 4.2 G/DL (3.2-5.2); ALKALINE PHOSPHATASE 60 U/L (35-104); ALT/SGPT 15 U/L (7.0-40); AST/SGOT 9 U/L (<34); BILIRUBIN,TOTAL 0.5 MG/DL (0.3-1.2); BLOOD UREA NITROGEN 9 MG/DL (9-23); CALCIUM LEVEL 9.3 MG/DL (8.5-10.1); CARBON DIOXIDE LEVEL 28 MMOL/L (20-31); CHLORIDE LEVEL 107 MMOL/L (98-107); CHOLESTEROL LEVEL 152 MG/DL (<200); CHOLESTEROL RISK RATIO 2.31 (<5); CREATININE FOR GFR 0.64 MG/DL (0.55-1.30); GLOMERULAR FILTRATION RATE > 60.0 (>60); GLUCOSE, FASTING 95 MG/DL (60-100); HDL CHOLESTEROL 65.7 MG/DL (>40); IRON (FE) 63 UG/DL (50-170); LDL CHOLESTEROL 75.1 MG/DL (<100); NON-HDL-C 86.3 MG/DL; PERCENT SATURATION 17.5 % (13.2-45.0); POTASSIUM SERUM 4.4 MMOL/L (3.5-5.1); SODIUM LEVEL 143 MMOL/L (136-145); TOTAL IRON BINDING CAPACITY 360 UG/DL (250-425); TOTAL PROTEIN 7.3 G/DL (5.7-8.2); TRIGLYCERIDES LEVEL 56 MG/DL (<150)
[2024-07-23 13:36] LABS: THYROID STIMULATING HORMONE 2.696 uIU/ML (0.55-4.78); TOTAL 25(OH) VITAMIN D 28.3 NG/ML (20.0-100.0)
[2024-07-23 13:43] LABS: HEMOGLOBIN A1c 5.1 % (4.0-6.0)
== END ==
LOC: M LAB 11:57
PROVIDERS: ATTEND Family Medicine
DX: D64.9 Anemia, unspecified (principal); R53.83 Other fatigue